=== PATIENT | male | born 1950 | race Caucasian/White ===

== ENCOUNTER 2017-10-02 06:58 | Emergency (ER) | payer OTHER, MEDICARE ==
[~2017-10-02] VITALS: Ht 172.7 cm; Wt 101.3 kg
[~2017-10-02 06:58] MED LIST: AMLODIPINE BESYL5 MG; ATENOLOL 100MG100 M2 PO; ATENOLOL 100MG100 MG; FLOMAX PO; FLUZONE 2045 MCG/011; IMDUR 60 MG TAB60 M1; IMDUR 60 MG TAB60 M1 PO; LISINOPRIL20 MG; LISINOPRIL40 MG PO; LORTAB 5 MG/5001 TAB PO; NORVASC10 MG PO; PERCOCET 5-3251 EACH PO; PHENERGAN 25 MG25 M1 PO; PLAVIX 75 MG TA75 MG; PLAVIX 75 MG TA75 MG PO; SENNA; VICODIN; ZETIA10 MG; ZETIA10 MG PO; ZOCOR80 MG; ZOCOR80 MG PO
[2017-10-02] MEDS ORDERED: LISINOPRIL10 MG PO (07:28)
[2017-10-02] MEDS ORDERED: POTASSIUM CIT2500 GM PO (07:30)
[2017-10-02] MEDS ORDERED: FUROSEMIDE 20 M20 MG PO (07:31)
[2017-10-02 07:43] LABS: ABSOLUTE BASOPHILS 0.1 thou/uL (0.0-0.2); ABSOLUTE EOSINOPHILS 0.2 thou/uL (0.0-0.7); ABSOLUTE LYMPHOCYTES 1.2 thou/uL (0.8-5.3); ABSOLUTE MONOCYTES 0.9 thou/uL (0.0-1.2); ABSOLUTE NEUTROPHILS 6.7 thou/uL (1.6-8.1); BASOPHILS 0.7 %; EOSINOPHILS 2.1 %; HEMATOCRIT 44.7 % (42.0-52.0); LYMPHOCYTES 13.1 %; MCH 32.2 pg (26.0-34.0); MCHC 33.4 g/dL (28.0-37.0); MCV 96.4 fL (80.0-100.0); MONOCYTES 10.3 %; MPV 9.1 fl. (7.2-11.1); NUCLEATED RBCS 0 /100WBC; PLATELET COUNT* 162 thou/uL (150-400); POLYS 73.8 %; RBC 4.64 mil/uL (4.50-6.00); RDW-CV 13.3 % (10.5-14.5); WBC 9.1 thou/uL (4.0-11.0)
[2017-10-02 07:50] LABS: ANION GAP 8 mmol/L (7-16); BUN 18 mg/dL (7-18); CALCIUM 9.1 mg/dL (8.5-10.1); CHLORIDE 110 mmol/L (98-107); CO2 25 mmol/L (21-32); CREATININE 1.1 mg/dL (0.6-1.3); GLUCOSE 115 mg/dL (70-99); POTASSIUM 3.8 mmol/L (3.5-5.1); SODIUM 143 mmol/L (136-145)
[2017-10-02 07:56] LABS: ALBUMIN 3.5 g/dL (3.4-5.0); ALKALINE PHOSPHATASE 38 U/L (46-116); LIPASE 196 U/L (73-393); SGOT 13 U/L (15-37); SGPT 22 U/L (30-65); TOTAL BILIRUBIN 0.4 mg/dL (<0.1-1.0); TOTAL PROTEIN 6.9 g/dL (6.4-8.2); TROPONIN-I LEVEL <0.06 ng/mL (<0.06)
[2017-10-02 08:02] LABS: URINE BILIRUBIN NEGATIVE (Negative); URINE BLOOD TRACE (Negative); URINE CLARITY CLEAR; URINE COLOR YELLOW; URINE GLUCOSE-RANDOM NEGATIVE (Negative); URINE KETONES NEGATIVE (Negative); URINE LEUKOCYTES-REFLEX TRACE (Negative); URINE NITRITE-REFLEX NEGATIVE (Negative); URINE PROTEIN NEGATIVE (Negative); URINE UROBILINOGEN 0.2 E.U./dl (0.2-1.0)
[2017-10-02] MEDS ORDERED: CIPROFLOXACIN500 M1 PO (08:55)
[2017-10-02] MEDS ORDERED: FLAGYL500 MG PO (08:55)
[2017-10-02] MEDS ORDERED: PREDNISONE 20 M20 M1 PO (08:55)
[2017-10-02 09:02] VITALS: BP 111/77
--- NOTE | 2017-10-02 13:58 | EKG ---
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 : 1950 Requested By: Jonahton Jiang Order Number: [id number] MD: Naif Florentino Measurements Intervals [place] Rate: 64 P: VT: 209 QRS: 2 QRSD: 112 T: 61 QT: 440 QTc: 454 Interpretive Statements Atrial-paced complexes Consider inferior infarct Compared to ECG 08/03/2010 12:28:30 atrial paced rhythm now noted Myocardial infarct finding still present Electronically Signed On 10-02-2017 13:58:35 CDT by Naif Florentino [email or web address] <ELECTRONICALLY SIGNED> By: Naif Florentino MD, [facility] 10/02/17 1358 6 6 Naif Florentino MD, [facility] /EPI
== END 2017-10-02 09:03 | disposition home or self-care (01) ==
LOC: M.ERS 06:58
PROVIDERS: Family Medicine
DX: K52.9 Noninfective gastroenteritis and colitis, unspecified (principal); I10 Essential (primary) hypertension; E78.00 Pure hypercholesterolemia, unspecified; F17.210 Nicotine dependence, cigarettes, uncomplicated; Z88.6 Allergy status to analgesic agent; Z88.8 Allergy status to other drugs, medicaments and biological substances